=== PATIENT | female | born 1940 | race Caucasian/White ===

== ENCOUNTER 2016-05-01 23:38 | Emergency (ER) | payer OTHER ==
[~2016-05-01 23:38] MED LIST: ASAB PO; B121000P IM; CLARIT10 PO; CRESTOR10 PO; HAIR/SKIN/NAIL PO; LEVOTHYROXIN100 MCG PO; MICARDIS HC1 PO; NORV10 PO; PLAVIX PO; PRILOSEC40 MG PO; PROAIR HFA INH; PROTONIX PO; SURBEX/C1 TAB PO; VITE1000 PO; VYTORIN 10/80 T1 TAB PO
[2016-05-01 23:52] LABS: BASOPHILS ABSOLUTE 0.05 10/3/uL (0.0-0.16); EOSINOPHILS 1.2 %; EOSINOPHILS ABSOLUTE 0.06 10/3/uL (0.0-0.53); HEMATOCRIT 41.9 % (36.0-48.0); HEMOGLOBIN 13.6 g/dL (12.0-16.0); IMMATURE GRANULOCYTES 0.2 %; IMMATURE GRANULOCYTES ABSOLUTE 0.01 10/3/uL (0.0-0.11); LYMPHOCYTES 38.3 %; LYMPHOCYTES ABSOLUTE 1.99 10/3/uL (0.67-4.30); MEAN CORPUS HGB CONC 32.5 g/dL (32.0-36.0); MEAN CORPUSCULAR HEMOGLOB 30.4 pg (26.0-34.0); MEAN CORPUSCULAR VOLUME 93.7 fL (80-100); MEAN PLATELET VOLUME 10.1 fL (9.2-13.0); MONOCYTES 8.1 %; MONOCYTES ABSOLUTE 0.42 10/3/uL (0.21-1.20); NEUTROPHILS 51.2 %; NEUTROPHILS ABSOLUTE 2.67 10/3/uL (2.02-8.40); PLATELET COUNT 318 10/3/uL (150-400); RBC DISTRIBUTION WIDTH 12.9 % (12.0-16.0); RED CELL COUNT 4.47 10/6/uL (4.0-5.6); WHITE BLOOD CELLS 5.2 10/3/uL (4.5-10.5)
[2016-05-01 23:53] LABS: ER CBC TAT 0 Hrs 03 MinsNP; MANUAL DIFF NO %
[2016-05-02 00:05] LABS: BUN (BLOOD UREA NITROGEN) 15 MG/DL (6-23); CALCIUM, SERUM 9.3 MG/DL (8.5-10.4); CHLORIDE, SERUM 104 MMOL/L (96-112); CO2 (CARBON DIOXIDE) 30 MMOL/L (24-34); CREATININE 0.78 MG/DL (0.55-1.02); GFR AFRICAN AMERICAN 87 ML/MIN (>=60); GFR NON AFRICAN AMERICAN 75 ML/MIN (>=60); GLUCOSE, SERUM 101 MG/DL (60-99); POTASSIUM, SERUM 3.9 MMOL/L (3.5-5.3); SODIUM, SERUM 143 MMOL/L (135-148)
[2016-05-02 01:12] LABS: ASCORBIC ACID (UR NOT ORDER) 40 (NEG); BILIRUBIN, URINE NEGATIVE (NEG); ER URINALYSIS TAT 0 Hrs 00 Mins; KETONE, URINE NEGATIVE (NEG); LEUKOCYTE ESTERASE(NOT OR NEG (NEG); NITRITE (URINE) NEG (NEG); WBC (NOT ORDERED) (RFLEX) 1 (0-5)
[2016-05-09] MEDS ORDERED: VITAMIN B PO (13:56)
[2016-05-10] MEDS ORDERED: NORCO1 TA2 PO (06:38)
[2016-05-10] MEDS ORDERED: NEUR100 PO (06:39)
[2016-05-10] MEDS ORDERED: X25 PO (06:40)
[2016-05-10] MEDS ORDERED: AMOXIL875 PO (06:41)
[2016-05-10] MEDS ORDERED: FOLIC ACID400 MC1 PO (06:45)
[2016-05-10] MEDS ORDERED: VITAMIN D1000 UNI1 PO (06:45)
[2016-05-10] MEDS ORDERED: POT GLUCONAT2.5 MEQ PO (06:46)
== END 2016-05-02 02:22 | disposition home or self-care (01) ==
LOC: ER 23:38
PROVIDERS: Emergency Medicine
DX: R55 Syncope and collapse (principal); J44.9 Chronic obstructive pulmonary disease, unspecified; E11.9 Type 2 diabetes mellitus without complications; I10 Essential (primary) hypertension; Z88.5 Allergy status to narcotic agent; Z88.2 Allergy status to sulfonamides; Z88.1 Allergy status to other antibiotic agents; Z88.8 Allergy status to other drugs, medicaments and biological substances; Z79.899 Other long term (current) drug therapy
CPT/HCPCS: 70450; 71010; 80048; 81001; 85025; 93005; 99285

== ENCOUNTER 2016-05-17 14:06 | Emergency (ER) | payer OTHER ==
[2016-05-17 13:23] LABS: BASOPHILS 0.7 %; BASOPHILS ABSOLUTE 0.03 10/3/uL (0.0-0.16); EOSINOPHILS 0.7 %; EOSINOPHILS ABSOLUTE 0.03 10/3/uL (0.0-0.53); HEMATOCRIT 38.4 % (36.0-48.0); HEMOGLOBIN 12.7 g/dL (12.0-16.0); IMMATURE GRANULOCYTES 0.2 %; IMMATURE GRANULOCYTES ABSOLUTE 0.01 10/3/uL (0.0-0.11); LYMPHOCYTES 31.1 %; LYMPHOCYTES ABSOLUTE 1.27 10/3/uL (0.67-4.30); MEAN CORPUS HGB CONC 33.1 g/dL (32.0-36.0); MEAN CORPUSCULAR HEMOGLOB 31.2 pg (26.0-34.0); MEAN CORPUSCULAR VOLUME 94.3 fL (80-100); MEAN PLATELET VOLUME 10.2 fL (9.2-13.0); MONOCYTES 8.3 %; MONOCYTES ABSOLUTE 0.34 10/3/uL (0.21-1.20); PLATELET COUNT 221 10/3/uL (150-400); RBC DISTRIBUTION WIDTH 12.7 % (12.0-16.0); RED CELL COUNT 4.07 10/6/uL (4.0-5.6); WHITE BLOOD CELLS 4.1 10/3/uL (4.5-10.5)
[2016-05-17 13:24] LABS: ER DIFF TAT HP; MANUAL DIFF NO %
[2016-05-17 13:30] LABS: PARTIAL THROMBO TIME 27.4 SEC (22.5-37.2); PROTIME (NOT ORD) 13.3 SEC (12.0-14.5)
[2016-05-17 13:33] LABS: D-DIMER QUANTITATIVE 1.41 ug/mLFEU (< 0.50)
[2016-05-17 13:39] LABS: BUN (BLOOD UREA NITROGEN) 12 MG/DL (6-23); CALCIUM, SERUM 8.9 MG/DL (8.5-10.4); CHEST PAIN PROFILE TAT 0 Hrs 22 Mins; CHLORIDE, SERUM 108 MMOL/L (96-112); CO2 (CARBON DIOXIDE) 28 MMOL/L (24-34); GFR AFRICAN AMERICAN 99 ML/MIN (>=60); GFR NON AFRICAN AMERICAN 85 ML/MIN (>=60); GLUCOSE, SERUM 91 MG/DL (60-99); POTASSIUM, SERUM 4.3 MMOL/L (3.5-5.3); SODIUM, SERUM 145 MMOL/L (135-148); TROPONIN I <0.02 NG/ML (<0.05)
[~2016-05-17 14:06] MED LIST changes: +AMOXIL875 PO; +FOLIC ACID400 MC1 PO; +NEUR100 PO; +NORCO1 TA2 PO; +POT GLUCONAT2.5 MEQ PO; +VITAMIN B PO; +VITAMIN D1000 UNI1 PO; +X25 PO
== END 2016-05-17 17:22 | disposition home or self-care (01) ==
LOC: ER 14:06
PROVIDERS: Emergency Medicine
DX: R60.0 Localized edema (principal); Z98.61 Coronary angioplasty status; Z91.041 Radiographic dye allergy status; Z88.5 Allergy status to narcotic agent; Z88.2 Allergy status to sulfonamides; Z88.8 Allergy status to other drugs, medicaments and biological substances; Z79.899 Other long term (current) drug therapy
CPT/HCPCS: 71010; 80048; 83735; 83880; 84484; 85025; 85379; 85610; 85730; 93005; 93970; 99284

== ENCOUNTER 2016-06-19 13:35 | Emergency (ER) | payer OTHER ==
[2016-06-19 14:08] LABS: BASOPHILS 0.4 %; BASOPHILS ABSOLUTE 0.02 10/3/uL (0.0-0.16); EOSINOPHILS 0.4 %; EOSINOPHILS ABSOLUTE 0.02 10/3/uL (0.0-0.53); HEMATOCRIT 38.1 % (36.0-48.0); HEMOGLOBIN 12.8 g/dL (12.0-16.0); LYMPHOCYTES 33.1 %; LYMPHOCYTES ABSOLUTE 1.65 10/3/uL (0.67-4.30); MANUAL DIFF NO %; MEAN CORPUS HGB CONC 33.6 g/dL (32.0-36.0); MEAN CORPUSCULAR HEMOGLOB 31.6 pg (26.0-34.0); MEAN CORPUSCULAR VOLUME 94.1 fL (80-100); MEAN PLATELET VOLUME 10.1 fL (9.2-13.0); MONOCYTES 5.4 %; MONOCYTES ABSOLUTE 0.27 10/3/uL (0.21-1.20); NEUTROPHILS 60.7 %; NEUTROPHILS ABSOLUTE 3.02 10/3/uL (2.02-8.40); PLATELET COUNT 257 10/3/uL (150-400); RBC DISTRIBUTION WIDTH 13.1 % (12.0-16.0); RED CELL COUNT 4.05 10/6/uL (4.0-5.6)
[2016-06-19 14:14] LABS: INTERNATIONAL NORMAL RATI 1.1 UNITS (-); PARTIAL THROMBO TIME 28.7 SEC (22.5-37.2)
[2016-06-19 14:25] LABS: BUN (BLOOD UREA NITROGEN) 14 MG/DL (6-23); CALCIUM, SERUM 9.5 MG/DL (8.5-10.4); CHEST PAIN PROFILE TAT 0 Hrs 21 Mins; CHLORIDE, SERUM 104 MMOL/L (96-112); CO2 (CARBON DIOXIDE) 27 MMOL/L (24-34); CREATININE 0.89 MG/DL (0.55-1.02); GFR AFRICAN AMERICAN 74 ML/MIN (>=60); GFR NON AFRICAN AMERICAN 64 ML/MIN (>=60); SODIUM, SERUM 142 MMOL/L (135-148); TROPONIN I <0.02 NG/ML (<0.05)
[2016-06-19 14:26] LABS: GLUCOSE, SERUM 181 MG/DL (60-99)
== END 2016-06-19 15:47 | disposition home or self-care (01) ==
LOC: ER 13:35
PROVIDERS: Emergency Medicine
DX: R07.89 Other chest pain (principal); E11.9 Type 2 diabetes mellitus without complications; Z95.0 Presence of cardiac pacemaker; Z95.5 Presence of coronary angioplasty implant and graft; Z88.1 Allergy status to other antibiotic agents; Z88.2 Allergy status to sulfonamides; Z88.5 Allergy status to narcotic agent; Z88.8 Allergy status to other drugs, medicaments and biological substances; Z79.899 Other long term (current) drug therapy
CPT/HCPCS: 71010; 80048; 83735; 84484; 85025; 85610; 85730; 93005; 96374; 99285; J1885

== ENCOUNTER 2016-06-26 20:37 | Emergency (ER) | payer OTHER ==
[2016-06-26 20:55] LABS: BASOPHILS 0.5 %; BASOPHILS ABSOLUTE 0.03 10/3/uL (0.0-0.16); EOSINOPHILS 0.7 %; EOSINOPHILS ABSOLUTE 0.04 10/3/uL (0.0-0.53); ER CBC TAT 0 Hrs 07 Mins; HEMATOCRIT 37.5 % (36.0-48.0); HEMOGLOBIN 12.5 g/dL (12.0-16.0); IMMATURE GRANULOCYTES 0.2 %; IMMATURE GRANULOCYTES ABSOLUTE 0.01 10/3/uL (0.0-0.11); LYMPHOCYTES 27.7 %; LYMPHOCYTES ABSOLUTE 1.55 10/3/uL (0.67-4.30); MANUAL DIFF NO %; MEAN CORPUS HGB CONC 33.3 g/dL (32.0-36.0); MEAN CORPUSCULAR HEMOGLOB 31.3 pg (26.0-34.0); MEAN PLATELET VOLUME 10.6 fL (9.2-13.0); MONOCYTES 6.4 %; MONOCYTES ABSOLUTE 0.36 10/3/uL (0.21-1.20); NEUTROPHILS 64.5 %; PLATELET COUNT 271 10/3/uL (150-400); RBC DISTRIBUTION WIDTH 13.2 % (12.0-16.0); RED CELL COUNT 3.99 10/6/uL (4.0-5.6); WHITE BLOOD CELLS 5.6 10/3/uL (4.5-10.5)
[2016-06-26 21:01] LABS: PROTIME (NOT ORD) 13.5 SEC (12.0-14.5)
[2016-06-26 21:02] LABS: PARTIAL THROMBO TIME 28.4 SEC (22.5-37.2)
[2016-06-26 21:15] LABS: ASCORBIC ACID (UR NOT ORDER) NEG (NEG); BILIRUBIN, URINE NEGATIVE (NEG); ER URINALYSIS TAT 0 Hrs 09 Mins; KETONE, URINE NEGATIVE (NEG); LEUKOCYTE ESTERASE(NOT OR SMALL (NEG); NITRITE (URINE) NEG (NEG); WBC (NOT ORDERED) (RFLEX) 1 (0-5)
[2016-06-26 21:16] LABS: ALBUMIN 3.9 G/DL (3.5-5.0); ALKALINE PHOSPHATASE 123 U/L (45-117); CALCIUM, SERUM 9.4 MG/DL (8.5-10.4); CHEST PAIN PROFILE TAT 0 Hrs 28 Mins; CHLORIDE, SERUM 105 MMOL/L (96-112); CO2 (CARBON DIOXIDE) 29 MMOL/L (24-34); CREATININE 0.74 MG/DL (0.55-1.02); GFR AFRICAN AMERICAN 92 ML/MIN (>=60); GFR NON AFRICAN AMERICAN 80 ML/MIN (>=60); SGOT(AST) 14 U/L (5-40); SGPT(ALT) 13 U/L (5-65); SODIUM, SERUM 140 MMOL/L (135-148); TOTAL BILIRUBIN 0.5 MG/DL (0-1.2); TOTAL PROTEIN 7.2 G/DL (6.0-8.5); TROPONIN I <0.02 NG/ML (<0.05)
[2016-06-26 21:26] LABS: BUN (BLOOD UREA NITROGEN) 9 MG/DL (6-23); DIRECT BILIRUBIN < 0.1 MG/DL (0.0-0.4); GLUCOSE, SERUM 88 MG/DL (60-99); INDIRECT BILIRUBIN(NOT ORDER) 0.4 MG/DL (0.1-0.9)
== END 2016-06-26 23:50 | disposition home or self-care (01) ==
LOC: ER 20:37
PROVIDERS: Emergency Medicine
DX: N39.0 Urinary tract infection, site not specified (principal); J44.9 Chronic obstructive pulmonary disease, unspecified; I11.0 Hypertensive heart disease with heart failure; I50.9 Heart failure, unspecified; K21.9 Gastro-esophageal reflux disease without esophagitis; F32.9 Major depressive disorder, single episode, unspecified; F41.9 Anxiety disorder, unspecified; Z88.1 Allergy status to other antibiotic agents; Z88.5 Allergy status to narcotic agent; Z88.8 Allergy status to other drugs, medicaments and biological substances; Z91.041 Radiographic dye allergy status; Z79.899 Other long term (current) drug therapy
CPT/HCPCS: 70450; 80048; 80076; 81001; 83690; 83735; 83880; 84484; 85025; 85610; 85730; 87077; 87086; 87186; 99284

== ENCOUNTER 2016-07-23 19:49 | Inpatient (IN) | payer OTHER ==
--- NOTE | ~2016-07-23 | HP ---
History And Physical [place] [id number] [facility] [place]. [address] NAME: VIANEY MOE : 42 STATUS : ADM Zahra PAT#: [id number] AGE: 76 ADM/REG DATE : 07/23/16 MR#: [id number] REPORT SERV DATE: 07/23/16 DICTATED BY: MERT PENA DATE: 07/23/16 REPORT STATUS : Draft TRANSCRIBED BY: MODL DATE: 07/23/16 DATE OF ADMISSION: 07/23/2016 CHIEF COMPLAINT: Passed out in the car today. HISTORY OF PRESENT ILLNESS: This is a 76-year-old female, who has a history of hypertension, pacemaker placement, COPD, hypothyroidism, who presents to the emergency room at [facility] with the above-mentioned complaint. History is obtained from the patient, her friend and manager consumer who is beside the bed, and review of data available on the [employer] system. According to Ms. Moe, she had been in her usual state of health until today. When in the evening, they came out of a place where they work and they were going to the car when she started having cramping in both her lower extremities. The cramping was so bad she almost cried out, but was able to get in the car and sit down. She continued to have severe cramping and two of the men who were available close by were willing to help her get out and go to the passenger's side and sit down in the car. As soon as they put her on the passenger side, she sat on the seat and immediately passed out. According to her friend who is at bedside, she was out for 5 or 10 minutes, but she actually does not remember or note actual time. EMS was summoned. The patient was brought here to be evaluated. According to the people who witnessed it, she did not have any bowel or bladder control loss. She had no symptoms of having a seizure. In the emergency room, initial workup revealed she had uncontrolled hypertension. CT scan of the brain and chest x-ray were unremarkable. EKG showed a paced rhythm at 71 as well. Hospitalist Service was asked to admit her for a 24-hour observation because of her syncope. Her blood pressures when she arrived was 196/105, which dropped down to 138/91. Hospitalist Service was asked to admit her for further evaluation and treatment. At the time of my evaluation, she denied any chest pain or palpitations. She had no orthopnea. She had no cough, hemoptysis, night sweats, or weight loss. She denied any fevers with chills prior to all this at home. No history of nausea, vomiting, diarrhea, hematemesis, hematochezia, or hematuria. No other history of recent travel or exposures. PAST MEDICAL HISTORY: Significant for essential hypertension, COPD, a pacemaker placed by Dr. Ernst Ferrer. She also has hypothyroidism, osteoarthritis, and depression. SOCIAL HISTORY: She has never smoked. Does not drink or use recreational drugs. FAMILY HISTORY: Noncontributory. MEDICATIONS: At home were reviewed by me in the chart today and reordered by me. REVIEW OF SYSTEMS: As in history of present illness. All other systems were reviewed and are quite unremarkable. History And Physical [address] [address] NAME: VIANEY MOE : 41 STATUS : ADM Zahra PAT#: [id number] AGE: 76 ADM/REG DATE : 07/23/16 MR#: [id number] REPORT SERV DATE: 07/23/16 DICTATED BY: MERT PENA DATE: 07/23/16 REPORT STATUS : Draft TRANSCRIBED BY: SOFÍA DATE: 07/23/16 PHYSICAL EXAMINATION: GENERAL: This is a pleasant 76-year-old, not in any acute distress. HEENT: Head is atraumatic, normocephalic. She is alert, awake, oriented to time, place, and person. She has vision in the right eye which appears to be not injected. No other significant findings. NECK: Supple with no jugular venous distention, lymphadenopathy, or thyromegaly. LUNGS: Clear to auscultation with no wheezes, rubs, or crackles. HEART: Heart sounds were regular with no murmurs, rubs, or gallops. ABDOMEN: Soft, nontender. Bowel sounds are present. EXTREMITIES: Showed no cyanosis, clubbing, or edema. NEUROLOGIC: Grossly intact. At the time of my exam, there were no motor or sensory deficits. Higher functions appeared intact. She was able to move all four extremities and gait was normal. VITAL SIGNS: Her temperature today was 98 degrees Fahrenheit, pulse 72, respirations 16 a minute, blood pressure was 196/105 upon arrival. This had come to 138/91. Her oxygen saturations were 98%, breathing on 2 L of oxygen via nasal cannula. LABORATORY DATA: CMP was essentially normal. Glucose was 90. Her troponin was 0.02 and CPK was 85. CBC was essentially within normal limits and urinalysis was grossly unremarkable. Films of the CT scan of the brain and chest x-ray were reviewed by me on the PACS today and interpreted by me. Per my interpretation, there are no lobar consolidations or pleural effusions seen. Films of the CT of the brain did not reveal any acute intracranial pathology. A 12-lead EKG done in the emergency room was reviewed and interpreted by me. There is paced rhythm at a rate of [address] elevations. IMPRESSION: 1. Syncope. 2. Bilateral lower extremity weakness. 3. Dysarthria. 4. Essential hypertension, uncontrolled. 5. Pacemaker placed. 6. Chronic obstructive pulmonary disease. 7. Hypothyroidism. PLAN: We will admit Mrs. Moe to the Hospitalist Service with cardiac telemetry for a 24- hour observation. We will interrogate her pacemaker in the ER, obtain a carotid duplex ultrasound, and an echocardiogram. She may be a candidate for MRI of the brain as well. Hypertension was controlled by hydralazine given intravenously on an as-needed basis. We will also place her on bronchodilator treatments, continue supplemental oxygen therapy, and check her TSH. We will also change her to aspirin 325 mg p.o. daily. I have discussed the above plans with the patient. Her questions were answered and she is in agreement with the above recommendations. MR/SOFÍA History And Physical [address] [address] NAME: VIANEY MOE : 41 STATUS : ADM Zahra PAT#: [id number] AGE: 76 ADM/REG DATE : 07/23/16 MR#: [id number] REPORT SERV DATE: 07/23/16 DICTATED BY: MERT PENA DATE: 07/23/16 REPORT STATUS : Draft TRANSCRIBED BY: SOFÍA DATE: 07/23/16 Mert Pena M.D. / [id number] CC: Jacobo Sparrow Jr, MD Robert Drake, M.D.
--- NOTE | ~2016-07-23 | DS ---
Discharge Summary [place] [address] [facility] [place]. [address] NAME: VIANEY BLEVINS : 42 STATUS : DIS IN PAT#: [id number] AGE: 76 ADM/REG DATE : 07/23/16 MR#: [id number] REPORT SERV DATE: 07/26/16 DICTATED BY: SHANDA ALMENDAREZ DATE: 07/25/16 REPORT STATUS : Draft TRANSCRIBED BY: MODL DATE: 07/25/16 ADMISSION DATE: 07/23/2016 DISCHARGE DATE: 07/25/2016 DISCHARGE DIAGNOSES: 1. Syncopal episode, more likely vasovagal. 2. Both leg cramps, potassium was prescribed. 3. Pacemaker presence, interrogation showed atrial tachycardia and nonsustained ventricular tachycardia. 07/24, Dr. Franco saw this patient and changed her amlodipine to Cardizem CD. 4. Hypertension. 5. Hypothyroidism with increased TSH level. We increased her Synthroid to 112 mcg once a day. CONSULTANTS: Dr. Franco. HISTORY OF PRESENT ILLNESS: This is a 76-year-old female patient, who came to the hospital after she had a syncopal episode after the severe leg cramps. Please see dictated H and P. HOSPITAL COURSE: She was admitted to hospital with a syncopal episode, seen by Dr. Franco for the pacemaker interrogation issue. Had an echocardiogram which showed mild diastolic dysfunction but nothing abnormal except. The patient has been having no more syncopal episode. Her syncopal episode was related with severe leg pain. She does not know why she had this leg pain. She has been suffering from severe leg cramps on both feet. We are prescribing her potassium to 40 mEq twice a day and also increasing her Synthroid to 112 from 100 with a finding of a TSH being elevated at 14.9. Since the patient does not have any other neurologic deficit or any other risk of the syncope, the patient will be discharged to home with followup with Dr. Franco and primary care physician. DISCHARGE MEDICATIONS: 1. Amlodipine was discontinued. 2. Cardizem CD 240 mg once a day. 3. Potassium 40 mEq twice a day. 4. Synthroid is increased to 112 mcg once a day with the other home medications that are not changed. TIME SPENT: More than 30 minutes. DICTATED BY: Shanda Almendarez M.D. EKL/MODL Discharge Summary [address] [place]. [address] NAME: VIANEY BLEVINS : 42 STATUS : DIS IN PAT#: [id number] AGE: 76 ADM/REG DATE : 07/23/16 MR#: [id number] REPORT SERV DATE: 07/26/16 DICTATED BY: SHANDA ALMENDAREZ DATE: 07/25/16 REPORT STATUS : Draft TRANSCRIBED BY: MODMarian DATE: 07/25/16 Shanda Almendarez M.D. / [id number] CC: Isidro Romero M.D.
--- NOTE | ~2016-07-23 | CN ---
Consultation Report [facility] [address] [place]. [address] NAME: VIANEY MOE : 42 STATUS : ADM Zahra PAT#: [id number] AGE: 76 ADM/REG DATE : 07/23/16 MR#: [id number] REPORT SERV DATE: 07/25/16 DICTATED BY: CHITO FRANCO DATE: 07/25/16 REPORT STATUS : Draft TRANSCRIBED BY: MODL DATE: 07/25/16 CONSULTATION DATE OF CONSULTATION: 07/25/2016 REASON FOR THE VISIT: Syncope. HISTORY OF PRESENT ILLNESS: Ms. Moe is a 76-year-old patient of mine who has a pacemaker. She is here secondary to syncope. She states that she was dizzy on the day of admission. She drank some juice and ate a cookie and felt better. She then began to have leg cramping and leg pain associated with weakness bilaterally, after that, she passed out. She does not remember the details of that. She was told that she was out for about 5 or 10 minutes. No loss of continence. No chest pain or palpitations. Subsequently her workup overall has been negative while here in the hospital. Telemetry though has documented arrhythmia including about 15 seconds of a wide-complex tachycardia. PAST MEDICAL HISTORY: 1. Sick sinus syndrome with pacemaker. 2. History of congestive heart failure. 3. Hyperlipidemia. 4. Hypertension. 5. Asthma. 6. COPD. 7. Osteoarthritis. 8. Peripheral neuropathy. 9. Hypothyroidism. SOCIAL HISTORY: She does not smoke. There is a friend in the room today. FAMILY HISTORY: Noncontributory. HOME MEDICATIONS: Please see the list in the chart as it is extensive. Relevant cardiac medications are Norvasc 10 mg daily, aspirin, Plavix 75 mg daily, losartan 100 mg daily, and Crestor 20 mg every night at bedtime. ALLERGIES: PLEASE SEE THE LIST IN THE CHART IT IS ALSO EXTENSIVE. REVIEW OF SYSTEMS: A 10-system review was asked and is negative except for noted above in the history of present illness. She denies any recent medication changes. No cold or flu symptoms. No fevers. PHYSICAL EXAMINATION: VITAL SIGNS: Temperature 98.4, heart rate 75, blood pressure 136/76. Consultation Report [facility] [address] [place]. [address] NAME: VIANEY MOE : 42 STATUS : ADM Zahra PAT#: [id number] AGE: 76 ADM/REG DATE : 07/23/16 MR#: [id number] REPORT SERV DATE: 07/25/16 DICTATED BY: CHITO FRANCO DATE: 07/25/16 REPORT STATUS : Draft TRANSCRIBED BY: SOFÍA DATE: 07/25/16 GENERAL: Ms. Moe is a well-developed female, in no acute distress. She is alert and oriented to person and place. HEENT: Negative. She has some eyelid droop in her left eye. I believe this is chronic from prior exams. NECK: There is no JVD in her neck. LUNGS: Clear. HEART: Tones are regular. There is a systolic murmur. ABDOMEN: The abdominal exam is negative. She has good bowel sounds. EXTREMITIES: Does not show significant edema. NEUROLOGIC: She has normal speech. She moves all four extremities. No obvious weakness is noted. SKIN: Does not show any rash or bruising. LABORATORY DATA: White blood cell count 5, hematocrit 35, platelet count 260, INR 1.0. Sodium 145, potassium 3.8, BUN 14, and creatinine 0.6. Liver function tests are normal. Electrocardiogram, this is from 07/23/2016, it shows atrial pacing in the 70s. Otherwise unremarkable. Device interrogation; this was performed by the [employer] territory account representative. She has normal device function. Multiple arrhythmia events are noted. Short episodes of PAT are noted. The event from earlier today does correspond to about 14 seconds of ventricular tachycardia. Importantly, no events were seen during or around the time of the patient's syncopal event. Echocardiogram, this is pending. IMPRESSION: 1. Syncope. 2. Ventricular arrhythmia. 3. Sick sinus syndrome with pacemaker. PLAN: Ms. Moe's workup for syncope thus far has been negative. She had a negative stress test about a year ago in our office. The echocardiogram is pending. She has ventricular tachycardia while here in the hospital, it is nonsustained. Due to this, I will switch from her amlodipine to Cardizem 240 mg daily. Normally I would give her a beta-leandra for this, but she has a history of adverse reaction listed in the chart. As above, there is no arrhythmia that corresponds to the syncopal event or anytime around the syncopal event based on the pacemaker interrogation. Therefore, I believe the ventricular arrhythmia and syncope are unrelated. At this time, I have spoken with Ms. Moe. As long as the echocardiogram is negative, she and I agree that her episode was from a noncardiac cause. A vagal reaction would be the highest on the list. If the echo is within normal limits, I have nothing else to add and she is allowed to go home and follow up with me as scheduled. I have left a prescription for Cardizem in the chart. She needs to stop amlodipine as an outpatient. The patient agrees with this plan. Consultation Report [facility] [address]. [address] NAME: VIANEY MOE : 42 STATUS : ADM Zahra PAT#: [id number] AGE: 76 ADM/REG DATE : 07/23/16 MR#: [id number] REPORT SERV DATE: 07/25/16 DICTATED BY: CHITO FRANCO DATE: 07/25/16 REPORT STATUS : Draft TRANSCRIBED BY: SOFÍA DATE: 07/25/16 NITISH/SOFÍA Chito Franco M.D. / [id number] CC: Jacobo Sparrow Jr, MD Robert Drake, M.D.
[2016-07-23 18:23] LABS: BASOPHILS 0.7 %; BASOPHILS ABSOLUTE 0.04 10/3/uL (0.0-0.16); EOSINOPHILS ABSOLUTE 0.06 10/3/uL (0.0-0.53); HEMATOCRIT 38.8 % (36.0-48.0); HEMOGLOBIN 13.2 g/dL (12.0-16.0); IMMATURE GRANULOCYTES 0.2 %; IMMATURE GRANULOCYTES ABSOLUTE 0.01 10/3/uL (0.0-0.11); LYMPHOCYTES 26.6 %; MEAN CORPUSCULAR HEMOGLOB 31.5 pg (26.0-34.0); MEAN CORPUSCULAR VOLUME 92.6 fL (80-100); MEAN PLATELET VOLUME 10.1 fL (9.2-13.0); MONOCYTES 5.2 %; MONOCYTES ABSOLUTE 0.31 10/3/uL (0.21-1.20); NEUTROPHILS 66.3 %; NEUTROPHILS ABSOLUTE 3.99 10/3/uL (2.02-8.40); PLATELET COUNT 303 10/3/uL (150-400); RBC DISTRIBUTION WIDTH 13.3 % (12.0-16.0); RED CELL COUNT 4.19 10/6/uL (4.0-5.6)
[2016-07-23 18:24] LABS: MANUAL DIFF NO %
[2016-07-23 18:31] LABS: PARTIAL THROMBO TIME 29.1 SEC (22.5-37.2); PROTIME (NOT ORD) 13.3 SEC (12.0-14.5)
[2016-07-23 18:36] LABS: WBC (NOT ORDERED) (RFLEX) 0 (0-5)
[2016-07-23 18:40] LABS: A/G RATIO 1.3 (0.7-1.9); ALKALINE PHOSPHATASE 123 U/L (45-117); BUN (BLOOD UREA NITROGEN) 8 MG/DL (6-23); CALCIUM, SERUM 9.5 MG/DL (8.5-10.4); CHLORIDE, SERUM 106 MMOL/L (96-112); CO2 (CARBON DIOXIDE) 33 MMOL/L (24-34); CPK 85 U/L (0-200); CREATININE 0.79 MG/DL (0.55-1.02); GFR AFRICAN AMERICAN 85 ML/MIN (>=60); GFR NON AFRICAN AMERICAN 73 ML/MIN (>=60); GLOBULIN 3.2 G/DL (2.5-4.1); GLUCOSE, SERUM 90 MG/DL (60-99); POTASSIUM, SERUM 3.7 MMOL/L (3.5-5.3); SGOT(AST) 14 U/L (5-40); SGPT(ALT) 17 U/L (5-65); SODIUM, SERUM 141 MMOL/L (135-148); TOTAL BILIRUBIN 0.4 MG/DL (0-1.2); TOTAL PROTEIN 7.2 G/DL (6.0-8.5); TROPONIN I <0.02 NG/ML (<0.05)
[2016-07-23 18:46] LABS: ASCORBIC ACID (UR NOT ORDER) NEG (NEG); BILIRUBIN, URINE NEGATIVE (NEG); ER URINALYSIS TAT 0 Hrs 14 Mins; KETONE, URINE NEGATIVE (NEG); LEUKOCYTE ESTERASE(NOT OR NEG (NEG); NITRITE (URINE) NEG (NEG)
[2016-07-23] MEDS ORDERED: NEUR100 PO (19:55)
[2016-07-23] MEDS ORDERED: ASAB PO (19:56)
[2016-07-23] MEDS ORDERED: X25 PO (19:56)
[2016-07-23] MEDS ORDERED: LEVOTHYROXIN100 MCG PO (19:56)
[2016-07-23] MEDS ORDERED: PROTONIX PO (19:57)
[2016-07-23] MEDS ORDERED: VITAMIN E OTC PO (19:57)
[2016-07-23] MEDS ORDERED: CRESTOR20 MG PO (19:57)
[2016-07-23] MEDS ORDERED: NORV10 PO (19:57)
[2016-07-23] MEDS ORDERED: CYANO1000T PO (19:58)
[2016-07-23] MEDS ORDERED: CO-Q-10 OTC PO (19:58)
[2016-07-23] MEDS ORDERED: VITAMIN D OTC PO (19:58)
[2016-07-23] MEDS ORDERED: VENTOLIN HFA INH (19:59)
[2016-07-23] MEDS ORDERED: PREDFORTE OPH (19:59)
[2016-07-23] MEDS ORDERED: VITAMIN C OTC PO (19:59)
[2016-07-23] MEDS ORDERED: AMOXIL875 MG PO (20:00)
[2016-07-23] MEDS ORDERED: FML OPH SUSP5 ML OPH (20:00)
[2016-07-23] MEDS ORDERED: COZAAR100 MG PO (20:01)
[2016-07-23] MEDS ORDERED: NORCO1 TA1 PO (20:01)
[2016-07-23] MEDS ORDERED: MAXITROL OPH (20:01)
[2016-07-23] MEDS ORDERED: PLAVIX PO (20:01)
[2016-07-24 05:34] LABS: BASOPHILS 0.6 %; BASOPHILS ABSOLUTE 0.03 10/3/uL (0.0-0.16); EOSINOPHILS 1.9 %; EOSINOPHILS ABSOLUTE 0.09 10/3/uL (0.0-0.53); HEMATOCRIT 34.3 % (36.0-48.0); HEMOGLOBIN 11.4 g/dL (12.0-16.0); IMMATURE GRANULOCYTES 0.2 %; IMMATURE GRANULOCYTES ABSOLUTE 0.01 10/3/uL (0.0-0.11); LYMPHOCYTES ABSOLUTE 1.48 10/3/uL (0.67-4.30); MANUAL DIFF NO %; MEAN CORPUS HGB CONC 33.2 g/dL (32.0-36.0); MEAN CORPUSCULAR HEMOGLOB 31.1 pg (26.0-34.0); MEAN CORPUSCULAR VOLUME 93.7 fL (80-100); MEAN PLATELET VOLUME 10.3 fL (9.2-13.0); MONOCYTES 5.2 %; MONOCYTES ABSOLUTE 0.24 10/3/uL (0.21-1.20); NEUTROPHILS 60.1 %; NEUTROPHILS ABSOLUTE 2.77 10/3/uL (2.02-8.40); PLATELET COUNT 268 10/3/uL (150-400); RBC DISTRIBUTION WIDTH 13.3 % (12.0-16.0); RED CELL COUNT 3.66 10/6/uL (4.0-5.6); WHITE BLOOD CELLS 4.6 10/3/uL (4.5-10.5)
[2016-07-24 06:01] LABS: BUN (BLOOD UREA NITROGEN) 9 MG/DL (6-23); CALCIUM, SERUM 8.9 MG/DL (8.5-10.4); CHLORIDE, SERUM 113 MMOL/L (96-112); CO2 (CARBON DIOXIDE) 30 MMOL/L (24-34); CREATININE 0.67 MG/DL (0.55-1.02); GFR AFRICAN AMERICAN 100 ML/MIN (>=60); GFR NON AFRICAN AMERICAN 86 ML/MIN (>=60); GLUCOSE, SERUM 80 MG/DL (60-99); PHOSPHORUS, SERUM 2.6 MG/DL (2.5-4.5); POTASSIUM, SERUM 3.9 MMOL/L (3.5-5.3); SODIUM, SERUM 143 MMOL/L (135-148)
[2016-07-25 05:53] LABS: BASOPHILS 0.8 %; BASOPHILS ABSOLUTE 0.04 10/3/uL (0.0-0.16); EOSINOPHILS 2.3 %; EOSINOPHILS ABSOLUTE 0.11 10/3/uL (0.0-0.53); HEMATOCRIT 34.9 % (36.0-48.0); HEMOGLOBIN 11.8 g/dL (12.0-16.0); IMMATURE GRANULOCYTES 0.4 %; IMMATURE GRANULOCYTES ABSOLUTE 0.02 10/3/uL (0.0-0.11); LYMPHOCYTES ABSOLUTE 1.58 10/3/uL (0.67-4.30); MEAN CORPUS HGB CONC 33.8 g/dL (32.0-36.0); MEAN CORPUSCULAR HEMOGLOB 31.5 pg (26.0-34.0); MEAN CORPUSCULAR VOLUME 93.1 fL (80-100); MEAN PLATELET VOLUME 10.1 fL (9.2-13.0); MONOCYTES 7.7 %; MONOCYTES ABSOLUTE 0.37 10/3/uL (0.21-1.20); NEUTROPHILS 55.8 %; NEUTROPHILS ABSOLUTE 2.67 10/3/uL (2.02-8.40); PLATELET COUNT 260 10/3/uL (150-400); RBC DISTRIBUTION WIDTH 13.5 % (12.0-16.0); RED CELL COUNT 3.75 10/6/uL (4.0-5.6); WHITE BLOOD CELLS 4.8 10/3/uL (4.5-10.5)
[2016-07-25 05:58] LABS: CALCIUM, SERUM 8.6 MG/DL (8.5-10.4); CHLORIDE, SERUM 110 MMOL/L (96-112); CO2 (CARBON DIOXIDE) 30 MMOL/L (24-34); CREATININE 0.66 MG/DL (0.55-1.02); GFR AFRICAN AMERICAN 100 ML/MIN (>=60); GFR NON AFRICAN AMERICAN 86 ML/MIN (>=60); GLUCOSE, SERUM 86 MG/DL (60-99); POTASSIUM, SERUM 3.8 MMOL/L (3.5-5.3); SODIUM, SERUM 145 MMOL/L (135-148)
[2016-07-25 05:59] LABS: BUN (BLOOD UREA NITROGEN) 14 MG/DL (6-23)
[2016-07-25 06:09] LABS: MANUAL DIFF NO %
[2016-07-25] MEDS ORDERED: KDUR20 PO (16:49)
[2016-07-25] MEDS ORDERED: CARDCD240 PO (16:49)
== END 2016-07-25 18:29 | disposition home or self-care (01) | DRG 312 ==
LOC: ER 19:49 → 5NO 21:23
PROVIDERS: Emergency Medicine; Internal Medicine; Internal Medicine Pulmonary Disease
PROC: 4B02XSZ Measurement of Cardiac Pacemaker, External Approach (ICD-10-PCS; principal; 2016-07-25)
DX: R55 Syncope and collapse (principal); I47.2 Ventricular tachycardia; J44.9 Chronic obstructive pulmonary disease, unspecified; Z95.0 Presence of cardiac pacemaker; I10 Essential (primary) hypertension; E03.9 Hypothyroidism, unspecified; E78.5 Hyperlipidemia, unspecified; Z79.82 Long term (current) use of aspirin; Z79.02 Long term (current) use of antithrombotics/antiplatelets; R25.2 Cramp and spasm
CPT/HCPCS: 70450; 71010; 80048; 80053; 81001; 82550; 82962; 83735; 84100; 84443; 84484; 85025; 85610; 85730; 93005; 93288; 93306; 99285; A9270-GY

== ENCOUNTER 2016-08-04 23:36 | Emergency (ER) | payer OTHER ==
[~2016-08-04 23:36] MED LIST changes: +AMOXIL875 MG PO; +CARDCD240 PO; +CO-Q-10 OTC PO; +COZAAR100 MG PO; +CRESTOR20 MG PO; +CYANO1000T PO; +FML OPH SUSP5 ML OPH; +KDUR20 PO; +MAXITROL OPH; +NORCO1 TA1 PO; +PREDFORTE OPH; +VENTOLIN HFA INH; +VITAMIN C OTC PO; +VITAMIN D OTC PO; +VITAMIN E OTC PO
[2016-08-05 01:15] LABS: BASOPHILS 0.4 %; BASOPHILS ABSOLUTE 0.02 10/3/uL (0.0-0.16); EOSINOPHILS ABSOLUTE 0.05 10/3/uL (0.0-0.53); ER CBC TAT 0 Hrs 05 Mins; HEMOGLOBIN 12.8 g/dL (12.0-16.0); LYMPHOCYTES 37.9 %; LYMPHOCYTES ABSOLUTE 1.95 10/3/uL (0.67-4.30); MANUAL DIFF NO %; MEAN CORPUS HGB CONC 33.7 g/dL (32.0-36.0); MEAN CORPUSCULAR HEMOGLOB 31.9 pg (26.0-34.0); MEAN CORPUSCULAR VOLUME 94.8 fL (80-100); MEAN PLATELET VOLUME 10.5 fL (9.2-13.0); MONOCYTES 6.8 %; MONOCYTES ABSOLUTE 0.35 10/3/uL (0.21-1.20); NEUTROPHILS 53.9 %; NEUTROPHILS ABSOLUTE 2.78 10/3/uL (2.02-8.40); PLATELET COUNT 268 10/3/uL (150-400); RBC DISTRIBUTION WIDTH 13.3 % (12.0-16.0); RED CELL COUNT 4.01 10/6/uL (4.0-5.6); WHITE BLOOD CELLS 5.2 10/3/uL (4.5-10.5)
[2016-08-05 01:24] LABS: INTERNATIONAL NORMAL RATI 1.1 UNITS (-); PROTIME (NOT ORD) 13.6 SEC (12.0-14.5)
[2016-08-05 01:31] LABS: BUN (BLOOD UREA NITROGEN) 14 MG/DL (6-23); CHEST PAIN PROFILE TAT 0 Hrs 21 Mins; CHLORIDE, SERUM 107 MMOL/L (96-112); CO2 (CARBON DIOXIDE) 30 MMOL/L (24-34); CREATININE 0.75 MG/DL (0.55-1.02); GFR AFRICAN AMERICAN 90 ML/MIN (>=60); GFR NON AFRICAN AMERICAN 78 ML/MIN (>=60); GLUCOSE, SERUM 82 MG/DL (60-99); POTASSIUM, SERUM 3.8 MMOL/L (3.5-5.3); SODIUM, SERUM 144 MMOL/L (135-148); TROPONIN I 0.02 NG/ML (<0.05)
== END 2016-08-05 02:42 | disposition home or self-care (01) ==
LOC: ER 23:36
PROVIDERS: Specialist
DX: R55 Syncope and collapse (principal); I10 Essential (primary) hypertension; Z95.0 Presence of cardiac pacemaker; Z88.5 Allergy status to narcotic agent; Z88.1 Allergy status to other antibiotic agents; Z91.041 Radiographic dye allergy status; Z79.82 Long term (current) use of aspirin; Z79.899 Other long term (current) drug therapy; Z79.2 Long term (current) use of antibiotics; Z79.891 Long term (current) use of opiate analgesic
CPT/HCPCS: 71010; 80048; 82962; 83735; 84484; 85025; 85610; 85730; 93005; 99284